=== PATIENT | male | born 1955 | race African-American/Black ===

== ENCOUNTER 2017-09-10 06:07 | Emergency (ER) | payer MEDICAID ==
[~2017-09-10] VITALS: Ht 152.4 cm; Wt 68.3 kg
[~2017-09-10 06:07] MED LIST: BP MEDICATION
[2017-09-10] MEDS ORDERED: LORazepam 2 MG/ML, 1ML IVPush ONE (07:00)
[2017-09-10] MEDS ORDERED: SODIUM CHLORIDE FLUSH 10ML SYR IVF ONE (07:00)
[2017-09-10] MEDS ORDERED: LORazepam 2 MG/ML, 1ML ONE ×2 (08:01→08:07)
[2017-09-10 08:23] LABS: BLOOD UREA NITROGEN 13 mg/dL (7-18)
[2017-09-10 08:28] LABS: ASPARTATE AMINO TRANSFERASE 55 U/L (15-37); IS PT STATUS REG ER OR PRE ER? YES
[2017-09-10 08:36] LABS: HEMATOCRIT 49.3 % (39.2-51.8); WHITE BLOOD COUNT 4.5 x10^3/uL (3.4-10)
[2017-09-10 09:11] VITALS: BP 160/107
== END 2017-09-10 10:19 | disposition home or self-care (01) ==
LOC: ED 06:32
DX: I10 Essential (primary) hypertension (principal); R51 Headache; M51.36 Other intervertebral disc degeneration, lumbar region; G89.29 Other chronic pain; M54.5 Low back pain; Z86.73 Personal history of transient ischemic attack (TIA), and cerebral infarction without residual deficits
CPT/HCPCS: 36415; 70450; 72110; 80053; 84484; 85025; 93005; 96374; 99285; J2060

== ENCOUNTER 2018-11-29 19:52 | Emergency (ER) | payer MEDICAID ==
[~2018-11-29] VITALS: Ht 170.2 cm; Wt 72.7 kg
[2018-11-29] MEDS ORDERED: DIPH,PERTUSS(ACELL),TET VAC/PF 0.5 ML IM-VACC ONE ×2 (20:30→20:47)
[2018-11-29] MEDS ORDERED: LIDOCAINE-MPF 1%, 5ML INFIL ONE (20:30)
--- NOTE | 2018-11-29 20:42 | NUR ---
PT TO ROOM FROM LOBBY AT THIS TIME.
[2018-11-29 20:46] LABS: BASOPHILS # (AUTO) 0.04 x10^3/uL (0-0.1); BASOPHILS % (AUTO) 1 % (0-1); EOSINOPHILS # (AUTO) 0.06 x10^3/uL (0-0.4); EOSINOPHILS % (AUTO) 1 % (1-7); LYMPHOCYTES # (AUTO) 1.36 x10^3/uL (1-3.4); LYMPHOCYTES % (AUTO) 24 % (22-44); MD NO; MEAN CORPUSCULAR HEMOGLOBIN 32.3 pg (27.5-34.5); MEAN CORPUSCULAR HGB CONC 34.5 g/dL (33.2-36.2); MEAN CORPUSCULAR VOLUME 93.7 fL (81-97); MEAN PLATELET VOLUME 8.7 fL (7.4-10.4); MONOCYTES # (AUTO) 0.35 x10^3/uL (0.2-0.8); MONOCYTES % (AUTO) 6 % (2-9); NEUTROPHILS # (AUTO) 3.93 x10^3/uL (1.8-6.8); NEUTROPHILS % (AUTO) 69 % (42-75); PLATELET COUNT 183 x10^3/uL (130-400); RED BLOOD COUNT 4.91 x10^6/uL (4.38-5.82); RED CELL DISTRIBUTION WIDTH 13.9 % (9.4-14.8)
[2018-11-29] MEDS ORDERED: LIDOCAINE-MPF 1%, 2ML ONE ×2 (20:48→21:11)
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
--- NOTE | 2018-11-29 20:57 | NUR ---
THOMPSON WAS IN LOBBY ON PT ARRIVAL TO ED.
[2018-11-29 20:58] LABS: ALBUMIN 3.9 g/dL (3.4-5.0); ANION GAP 6 mmol/L (5-15); CALCIUM 8.8 mg/dL (8.5-10.1); CHLORIDE 111 mmol/L (98-107); CREATININE 1.21 mg/dL (0.7-1.3)
[2018-11-29] MEDS ORDERED: TAMS-11 PO (21:51)
[2018-11-29] MEDS ORDERED: ACID REFLUX (21:51)
--- NOTE | 2018-11-29 21:52 | NUR ---
PT RESTING ON GURNEY, C/O HEAD AND FACE PAIN REQUESTING PAIN MEDICATION, WILL UPDATE ERP, CALL LIGHT WITHIN REACH.
[2018-11-29] MEDS ORDERED: ACETAMINOPHEN 325 MG TABLET ONE (21:55)
[2018-11-29] MEDS ORDERED: HYDROcodone/APAP 5/325 TABLET ONE (21:59)
[2018-11-29] MEDS ORDERED: HYDROcodone/APAP 5/325 TABLET PO ONE (22:00)
[2018-11-29] MEDS ORDERED: ACETAMINOPHEN 325 MG TABLET PO ONE (22:00)
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
--- NOTE | 2018-11-29 22:43 | NUR ---
PT UP TO RR WITH STEADY GAIT, STOOL SAMPLE SENT
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
[2018-11-29 23:03] VITALS: BP 146/89
[2018-11-30 00:13] LABS: CLOSTRIDIUM DIFFICILE ANTIGEN NEGATIVE; CLOSTRIDIUM DIFFICILE TOXIN NEGATIVE (Negative)
== END 2018-11-29 23:23 | disposition home or self-care (01) ==
LOC: ED 23:00
DX: S06.0X0A Concussion without loss of consciousness, initial encounter (principal); S62.241A Displaced fracture of shaft of first metacarpal bone, right hand, initial encounter for closed fracture; S01.01XA Laceration without foreign body of scalp, initial encounter; I10 Essential (primary) hypertension; Z72.9 Problem related to lifestyle, unspecified; Z86.73 Personal history of transient ischemic attack (TIA), and cerebral infarction without residual deficits; Y04.0XXA Assault by unarmed brawl or fight, initial encounter; Y93.89 Activity, other specified; Y92.410 Unspecified street and highway as the place of occurrence of the external cause; Y99.8 Other external cause status
CPT/HCPCS: 12032; 29125; 36415; 70450; 70486; 80048; 82040; 85025; 87324; 89055; 90471; 90715